=== PATIENT | male | born 1990 | race Caucasian/White ===

== ENCOUNTER 2017-03-18 14:16 | Emergency (ER) | payer OTHER ==
[~2017-03-18] VITALS: Ht 172.7 cm; Wt 81.8 kg
[2017-03-18] MEDS ORDERED: SODIUM CHLORIDE 0.9% 1,000 ML IV ONE (15:15)
[2017-03-18] MEDS ORDERED: LORazepam 2 MG/ML, 1ML ONE (15:18)
[2017-03-18] MEDS ORDERED: SODIUM CHLORIDE FLUSH 10ML SYR IVF ONE (15:30)
[2017-03-18] MEDS ORDERED: LORazepam 2 MG/ML, 1ML IVPush ONE (15:30)
[2017-03-18] MEDS ORDERED: SODIUM CHLORIDE 0.9% 1,000ML IVBOLUS ONE (15:30)
[2017-03-18 15:46] LABS: DAU SCREEN DISCLAIMER
[2017-03-18 15:57] LABS: HEMATOCRIT 45.3 % (39.2-51.8); HEMOGLOBIN 15.4 g/dL (13.7-18.0); WHITE BLOOD COUNT 8.8 x10^3/uL (3.4-10)
[2017-03-18 16:05] VITALS: BP 111/43
[2017-03-18 16:10] LABS: BLOOD UREA NITROGEN 13 mg/dL (7-18)
[2017-03-18 16:11] LABS: IS PT STATUS REG ER OR PRE ER? YES
== END 2017-03-18 17:08 | disposition home or self-care (01) ==
LOC: ED 16:45
DX: R07.89 Other chest pain (principal); F41.1 Generalized anxiety disorder; F17.200 Nicotine dependence, unspecified, uncomplicated; F12.10 Cannabis abuse, uncomplicated
CPT/HCPCS: 36415; 71010; 80048; 80307; 82040; 84443; 84484; 85025; 85379; 93005; 96374; 99285; J2060; J7030; G0479